=== PATIENT | male | born 1970 | race Caucasian/White ===

== ENCOUNTER → 2017-06-24 | Outpatient (CLI) | payer BC, OTHER ==
[~2017-06-24] MED LIST: ADV250/50 INH; CLI150 PO; LOR7.5/325 PO
--- NOTE | 2017-06-24 09:47 | RADIOLOGY IMAGING REPORT ---
FACILITY: [facility] - [place] PATIENT NAME: Bi Song : 1970 MR: [id number] V: [id number] EXAM DATE: ORDERING PHYSICIAN: DAVE RITTER TECHNOLOGIST: Location: [facility] [place] Patient: Bi Song : 1970 Visit/Account:[id number] Date of Sevice: 06/24/2017 EXAMINATION: Head CT without intravenous contrast History: Pain TECHNIQUE: Contiguous axial images were obtained from the skull base to the vertex without intraven ous contrast. One of the following dose optimization techniques was utilized in the performance of th is exam: Automated exposure control; adjustment of the mA and/or kV according to the patient's size; or use of an iterative reconstruction technique. Specific details can be referenced in the facility 's radiology CT exam operational policy. COMPARISON STUDIES: none FINDINGS: Visualized mastoid air cells / paranasal sinuses: Mild mucosal thickening. Calvarium and scalp: negative White matter: negative Dural venous sinuses / arterial structures: negative Ventricles / sulci / fissures: negative Masses / hemorrhage / midline shift: negative Extra-axial spaces: negative IMPRESSION: Normal head CT. No evidence of a mass, acute ischemia or hemorrhage. Report Dictated By: Jamshid Dos Santos MD at 06/24/2017 9:40 AM Report E-Signed By: Jamshid Dos Santos MD at 06/24/2017 9:42 AM [id number]
== END ==
LOC: CT 01:12
PROVIDERS: ATTEND Nurse Practitioner Family
DX: G50.1 Atypical facial pain (principal); G44.89 Other headache syndrome; M54.81 Occipital neuralgia; K21.9 Gastro-esophageal reflux disease without esophagitis
CPT/HCPCS: 70450